=== PATIENT | female | born 1990 | race Hispanic/Latino ===

== ENCOUNTER 2023-05-28 19:32 | Emergency (ER) | payer BC ==
[2023-05-28 20:39] LABS: #Basophils 0.1 10x3/uL (0.0-0.2); #Eosinphils 0.1 10x3/uL (0.0-0.5); #Monocytes 0.4 10x3/uL (0.0-1.1); #Neutrophils 7.4 10x3/uL (1.5-8.4); %Basophils 0.5 % (0.0-2.0); %Eosinophils 1.4 % (0.0-6.0); %Lymphocytes 20.5 % (18.0-47.0); %Monocytes 4.1 % (0.0-10.0); %Neutrophils 73.2 % (40.0-75.0); Hematocrit 35.5 % (34.9-44.5); Hemoglobin 11.8 g/dL (12.0-15.5); Mean Corpuscular HGB CONC 33.2 g/dL (32.0-36.0); Mean Corpuscular Volume 87.2 fl (81.6-98.3); Mean Platelet Volume 12.4 fl (7.4-10.4); Platelet Count 206 10x3/uL (150-450); RBC Distribution Width 12.8 % (11.5-14.5); Red Blood Cell (RBC) Count 4.07 10x6/uL (3.90-5.03); White Blood Cell (WBC) Count 10.1 10x3/uL (3.5-10.5)
[2023-05-28 23:33] LABS: Bilirubin Neg (Negative); Blood, Urine 250 (Negative); Clarity Slightly Cloudy (Clear); Glucose, Urine (Dipstick) 50 mg/dL (Negative); Ketone, Urine Negative (Negative); Leukocyte Negative (Negative); Nitrite Negative (Negative); Protein, Urine (Dipstick) Negative (Neg-Trace); Specific Gravity, Urine 1.015 (1.005-1.030); Urobilinogen Normal mg/dL (Less than 2)
[2023-05-28 23:48] LABS: CAUTI Indications for Culture Pregnancy; Squamous Epithelial 0-3 HPF (0-3)
[2023-05-28 23:49] LABS: Bacteria/HPF Rare-Few HPF (None Seen)
[2023-05-28 23:50] LABS: Urine Culture Reflex Yes Yes
== END 2023-05-29 00:54 | disposition home or self-care (01) ==
LOC: CSHERS 19:32
DX: O20.8 Other hemorrhage in early pregnancy (principal); Z3A.14 14 weeks gestation of pregnancy
CPT/HCPCS: 36415; 76815; 81001; 84702; 85025; 86900; 86901; 87086

== ENCOUNTER 2023-11-06 07:25 | Inpatient (IN) | payer BC ==
[2023-11-06] MEDS ORDERED: Lidocaine 1% (PF) 30 ML VIAL SC PRN ×2 (07:50→10:20)
[2023-11-06 08:00] VITALS: BMI 26.3
[2023-11-06] MEDS ORDERED: Mineral Oil ENEMA PR SCH (08:00)
[2023-11-06] MEDS ORDERED: Terbutaline Sulfate 1 MG/ML VIAL SC SCH (08:00)
[2023-11-06 08:55] LABS: Hematocrit 36.8 % (34.9-44.5); Mean Corpuscular HGB CONC 32.6 g/dL (32.0-36.0); Mean Corpuscular Hemoglobin 27.5 pg (27.0-33.0); Mean Corpuscular Volume 84.2 fl (81.6-98.3); Platelet Count 214 10x3/uL (150-450); RBC Distribution Width 13.3 % (11.5-14.5); Red Blood Cell (RBC) Count 4.37 10x6/uL (3.90-5.03)
[2023-11-06 09:51] LABS: Syphilis Antibody Nonreactive (Nonreactive); Syphilis Antibody Index 0.08 S/CO (<1.00 Non-Reactive)
[2023-11-06 09:53] LABS: HBSAg Index 0.16 S/CO (0-0.99); Hep B Surf Ag - L&D Non-Reactive S/CO (NonReactive)
[2023-11-06] MEDS ORDERED: CEFAZOLIN 2 GM VIAL ONE (09:53)
[2023-11-06] MEDS ORDERED: Oxytocin 10 UNITS/ML VIAL ONE (09:54)
[2023-11-06] MEDS ORDERED: SUCCINYLCHOLINE/SOD CL,ISO/PF 200 MG/10 ML SYRINGE FS ONE (09:54)
[2023-11-06] MEDS ORDERED: fentaNYL 50 mcg/mL 1 mL Vial ONE ×2 (09:55→09:56)
[2023-11-06] MEDS ORDERED: Fentanyl 250 MCG/5 ML VIAL ONE (09:55)
[2023-11-06] MEDS ORDERED: PROPOFOL 0 ML ONE (09:55)
[2023-11-06] MEDS ORDERED: hydrALAZINE 20 MG/ML VIAL SLOW IVP PRN ×2 (10:20→21:57)
[2023-11-06] MEDS ORDERED: Bicitra 30 ML UDCUP PO PRN (10:20)
[2023-11-06] MEDS ORDERED: Ibuprofen 800 MG TAB PO PRN (10:20)
[2023-11-06] MEDS ORDERED: Ondansetron PF 4 MG/2 ML Vial IVP PRN ×3 (10:20→21:57)
[2023-11-06] MEDS ORDERED: Famotidine/PF 20 mg/2ml Vial SLOW IVP PRN (10:20)
[2023-11-06] MEDS ORDERED: Promethazine HCl 25 MG/ML VIAL IM PRN ×2 (10:20→10:58)
[2023-11-06] MEDS ORDERED: fentaNYL/Ropivacaine Epidural 100 ML ONE (10:20)
[2023-11-06] MEDS ORDERED: HYDROcodone/Acetaminophen 5/325 mg Tablet PO PRN ×2 (10:20)
[2023-11-06] MEDS ORDERED: CEFAZOLIN 2 GM in Sodium Chloride 0.9% 100 ML IVPB SCH (10:30)
[2023-11-06] MEDS ORDERED: Oxytocin 30 units/NS 500 ML 500 ML IV SCH ×3 (10:30→21:57)
[2023-11-06] MEDS ORDERED: Azithromycin 500 MG in Sodium Chloride 0.9% 250 ML 250 ML IVPB SCH (10:30)
[2023-11-06] MEDS ORDERED: Misoprostol 200 MCG TAB ONE (10:46)
[2023-11-06] MEDS ORDERED: Moisturizing Cream (Eucerin) 113 GM JAR TOP PRN (10:58)
[2023-11-06] MEDS ORDERED: ePHEDrine Sulfate 50 MG/10 ML VIAL SLOW IVP PRN (10:58)
[2023-11-06] MEDS ORDERED: Lactated Ringer's 500 ML IV PRN (10:58)
[2023-11-06] MEDS ORDERED: Acetaminophen 325 MG TAB PO PRN (10:58)
[2023-11-06] MEDS ORDERED: diphenhydrAMINE 50 MG/ML VIAL IVP PRN (10:58)
[2023-11-06] MEDS ORDERED: Naloxone HCl 0.4 mg/ml Vial IVP PRN ×2 (10:58)
[2023-11-06] MEDS ORDERED: Communication Order-Pharmacy FS SCH (11:00)
[2023-11-06] MEDS ORDERED: fentaNYL 2 mcg/Ropivacaine 0.2% Epidural 100 ML CADD EPIDURAL SCH (11:00)
[2023-11-06 18:36] LABS: Analyzer IN Cardio CS NICU; RapidComm Collect By CBN
[2023-11-06 18:39] LABS: Analyzer IN Cardio CS NICU; RapidComm Collect By CBN; pH (Cord, venous) 7.364 (7.250-7.350)
[2023-11-06] MEDS ORDERED: Benzocaine-Menthol 82.5 ML CAN TOP PRN (21:57)
[2023-11-06] MEDS ORDERED: Milk Of Magnesia 30 ML UDCUP PO PRN (21:57)
[2023-11-06] MEDS ORDERED: Lanolin Ointment 7 GM TUBE TOP PRN (21:57)
[2023-11-06] MEDS ORDERED: diphenhydrAMINE 25 MG CAP PO PRN (21:57)
[2023-11-06] MEDS ORDERED: Boostrix 0.5 ML (Tdap) VIAL (>/=7 yrs of age) IM ONE (21:57)
[2023-11-06] MEDS ORDERED: Preparation H Ointment 28 GM TUBE PR PRN (21:57)
[2023-11-06] MEDS ORDERED: Bisacodyl 10 MG SUPP PR PRN (21:57)
[2023-11-06] MEDS: Lactated Ringer's 1,000 ML IV SCH (22:06)
[2023-11-06] MEDS ORDERED: Docusate 100 MG CAP PO SCH (22:15)
[2023-11-06] MEDS: Ibuprofen 800 MG TAB PO SCH (22:54)
[2023-11-07] MEDS: Lactated Ringer's 1,000 ML IV SCH ×3 (03:14→19:18)
[2023-11-07] MEDS: Ibuprofen 800 MG TAB PO SCH ×3 (05:49→21:55)
[2023-11-07] MEDS: Prenatal Vitamin 1 TAB PO SCH (07:55)
[2023-11-07] MEDS: Ferrous Sulfate 325 MG TAB PO SCH ×2 (07:56→18:20)
[2023-11-07] MEDS: Docusate 100 MG CAP PO SCH ×2 (07:56→21:55)
[2023-11-07] MEDS ORDERED: HYDROcodone/Acetaminophen 5/325 mg Tablet PO PRN ×2 (11:00)
[2023-11-08] MEDS: Lactated Ringer's 1,000 ML IV SCH (01:29)
[2023-11-08] MEDS: Ibuprofen 800 MG TAB PO SCH (05:34)
[2023-11-08] MEDS: Docusate 100 MG CAP PO SCH (08:16)
[2023-11-08] MEDS: Prenatal Vitamin 1 TAB PO SCH (08:16)
[2023-11-08 11:31] VITALS: BP 115/61; TEMP 98.2
== END 2023-11-08 11:40 | disposition home or self-care (01) | DRG 807 ==
LOC: CSHLD 07:25 → OBSVTOIN 10:20 → CSHLD 13:37 → CSHPP 21:40
PROVIDERS: ADMIT Obstetrics & Gynecology; ATTEND Obstetrics & Gynecology
PROC: 10D07Z6 Extraction of Products of Conception, Vacuum, Via Natural or Artificial Opening (ICD-10-PCS; principal; 2023-11-06)
DX: O32.1XX0 Maternal care for breech presentation, not applicable or unspecified (principal); Z37.0 Single live birth; Z3A.37 37 weeks gestation of pregnancy; O69.81X0 Labor and delivery complicated by cord around neck, without compression, not applicable or unspecified; Z79.899 Other long term (current) drug therapy
CPT/HCPCS: 82805; 85027; 86780; 86850; 86900; 86901; 87340; J2590; J2704; J3010; J3105